=== PATIENT | female | born 1990 | race Native Hawaiian/Other Pacific Islander ===

== ENCOUNTER 2018-05-15 08:30 | Outpatient (CLI) | payer OTHER ==
[2018-05-15 09:12] LABS: PLATELET COUNT 367 K/uL (152-353)
[2018-05-15 09:35] LABS: POTASSIUM 4.3 mmol/L (3.6-5.2)
== END 2018-05-15 23:01 | disposition home or self-care (01) ==
LOC: LABW 08:30
PROVIDERS: Family Medicine
DX: F41.8 Other specified anxiety disorders (principal); G47.09 Other insomnia
CPT/HCPCS: 36415; 80053; 84439; 84443; 85027

== ENCOUNTER 2019-06-28 08:24 | Outpatient (CLI) | payer OTHER ==
[2019-06-28 09:12] LABS: POTASSIUM 4.3 mmol/L (3.6-5.2)
[2019-06-28 09:43] LABS: PLATELET COUNT 321 K/uL (152-353)
== END 2019-06-28 22:33 | disposition home or self-care (01) ==
LOC: LABW 08:24
PROVIDERS: Family Medicine
DX: F41.8 Other specified anxiety disorders (principal); Z68.35 Body mass index [BMI] 35.0-35.9, adult; R03.0 Elevated blood-pressure reading, without diagnosis of hypertension
CPT/HCPCS: 36415; 80053; 80061; 81000; 84439; 84443; 85027

== ENCOUNTER 2020-06-18 12:08 | Outpatient (CLI) | payer OTHER | END 2020-06-18 21:30 | disposition home or self-care (01) | LOC: RAD 12:08 → LAB 12:08 → RAD 21:30 | DX: R07.9 Chest pain, unspecified (principal); F41.9 Anxiety disorder, unspecified; R51 Headache | CPT/HCPCS: 87635; 93005; G2023; U0003 ==

== ENCOUNTER 2021-05-29 08:15 | Outpatient (CLI) | payer OTHER | END 2021-05-29 22:34 | disposition home or self-care (01) | LOC: US 08:15 | PROVIDERS: ATTEND Family Medicine | DX: R79.89 Other specified abnormal findings of blood chemistry (principal) ==

== ENCOUNTER 2022-06-12 10:20 | Emergency (ER) | payer OTHER ==
[~2022-06-12] VITALS: Ht 149.9 cm; Wt 75.3 kg
[2022-06-12 11:37] VITALS: BP 115/75; TEMP 97.4
== END 2022-06-12 11:45 | disposition home or self-care (01) ==
LOC: ED 10:20
DX: H65.191 Other acute nonsuppurative otitis media, right ear (principal); H60.8X1 Other otitis externa, right ear
CPT/HCPCS: 96372; 99283; J0696; J1885